=== PATIENT | female | born 1950 | race Native Hawaiian/Other Pacific Islander ===

== ENCOUNTER 2016-12-24 08:15 | Outpatient (CLI) | payer OTHER, MEDICARE | END 2016-12-24 19:13 | disposition home or self-care (01) | LOC: NM 08:15 | DX: R07.89 Other chest pain (principal) | CPT/HCPCS: A9500; J2785 ==

== ENCOUNTER 2017-10-31 13:15 | Outpatient (CLI) | payer OTHER, MEDICARE | END 2017-10-31 19:24 | disposition home or self-care (01) | LOC: RAD 13:15 | DX: M25.562 Pain in left knee (principal) ==

== ENCOUNTER 2019-03-01 11:57 | Outpatient (CLI) | payer OTHER, MEDICARE ==
[2019-03-01 12:10] LABS: PLATELET COUNT 201 K/uL (152-353)
[2019-03-01 12:34] LABS: POTASSIUM 4.4 mmol/L (3.6-5.2)
== END 2019-03-01 19:53 | disposition home or self-care (01) ==
LOC: LAB 11:57
PROVIDERS: Physician Assistant
DX: Z00.00 Encounter for general adult medical examination without abnormal findings (principal); I10 Essential (primary) hypertension; E55.9 Vitamin D deficiency, unspecified; E53.8 Deficiency of other specified B group vitamins
CPT/HCPCS: 80053; 80061; 82306; 82607; 84439; 84443; 85027

== ENCOUNTER 2019-04-06 08:38 | Outpatient (CLI) | payer OTHER, MEDICARE | END 2019-04-06 19:50 | disposition home or self-care (01) | LOC: MAMMO 08:38 | DX: Z00.00 Encounter for general adult medical examination without abnormal findings (principal); Z12.31 Encounter for screening mammogram for malignant neoplasm of breast; M25.561 Pain in right knee ==

== ENCOUNTER 2019-04-29 10:16 | Outpatient (CLI) | payer OTHER, MEDICARE | END 2019-04-29 20:15 | disposition home or self-care (01) | LOC: RAD 10:16 | DX: R92.8 Other abnormal and inconclusive findings on diagnostic imaging of breast (principal); N63.20 Unspecified lump in the left breast, unspecified quadrant ==

== ENCOUNTER 2020-04-12 12:53 | Outpatient (CLI) | payer OTHER, MEDICARE ==
[2020-04-12 15:00] LABS: PLATELET COUNT 192 K/uL (152-353)
[2020-04-12 18:32] LABS: POTASSIUM 4.9 mmol/L (3.6-5.2)
== END 2020-04-12 20:27 | disposition home or self-care (01) ==
LOC: LAB 12:53
PROVIDERS: Nurse Practitioner Family
DX: Z00.00 Encounter for general adult medical examination without abnormal findings (principal); I10 Essential (primary) hypertension; E78.00 Pure hypercholesterolemia, unspecified; M54.5 Low back pain; E55.9 Vitamin D deficiency, unspecified; Z79.899 Other long term (current) drug therapy
CPT/HCPCS: 36415; 80053; 80061; 82306; 83036; 84439; 84443; 84481; 85027

== ENCOUNTER 2020-04-26 08:26 | Outpatient (CLI) | payer OTHER, MEDICARE | END 2020-04-26 19:48 | disposition home or self-care (01) | LOC: US 08:26 | DX: N28.9 Disorder of kidney and ureter, unspecified (principal); Q60.0 Renal agenesis, unilateral ==

== ENCOUNTER 2020-07-06 14:30 | Outpatient (CLI) | payer OTHER, MEDICARE ==
[2020-07-06 14:42] LABS: PLATELET COUNT 183 K/uL (152-353)
[2020-07-06 15:06] LABS: POTASSIUM 4.4 mmol/L (3.6-5.2)
== END 2020-07-06 20:01 | disposition home or self-care (01) ==
LOC: LAB 14:30
PROVIDERS: Nurse Practitioner Family
DX: I10 Essential (primary) hypertension (principal); E78.00 Pure hypercholesterolemia, unspecified; E55.9 Vitamin D deficiency, unspecified; Z79.899 Other long term (current) drug therapy; R06.02 Shortness of breath; R63.5 Abnormal weight gain
CPT/HCPCS: 80053; 80061; 82306; 83036; 84439; 84443; 84481; 85027

== ENCOUNTER 2020-07-26 07:32 | Outpatient (CLI) | payer OTHER, MEDICARE | END 2020-07-26 23:19 | disposition home or self-care (01) | LOC: US 07:32 | DX: R10.11 Right upper quadrant pain (principal) ==

== ENCOUNTER 2020-08-01 07:55 | Outpatient (CLI) | payer OTHER, MEDICARE | END 2020-08-01 23:28 | disposition home or self-care (01) | LOC: CT 07:55 | DX: R10.11 Right upper quadrant pain (principal) ==

== ENCOUNTER 2020-08-10 07:41 | Outpatient (CLI) | payer OTHER, MEDICARE ==
[2020-08-10 08:50] LABS: PLATELET COUNT 201 K/uL (152-353)
[2020-08-10 08:55] LABS: POTASSIUM 4.6 mmol/L (3.6-5.2)
== END 2020-08-10 20:52 | disposition home or self-care (01) ==
LOC: US 07:41
PROVIDERS: ATTEND Internal Medicine
DX: N18.31 Chronic kidney disease, stage 3a (principal); R53.81 Other malaise; Z79.899 Other long term (current) drug therapy; R79.89 Other specified abnormal findings of blood chemistry
CPT/HCPCS: 36415; 80053; 81000; 82306; 82330; 82570; 82607; 82728; 82746; 83036; 83540; 83550; 83735; 83970; 84100; 84155; 84439; 84443; 85027; 85651; 86038; 86140

== ENCOUNTER 2020-10-31 11:45 | Outpatient (CLI) | payer OTHER, MEDICARE ==
[2020-10-31 12:18] LABS: PLATELET COUNT 199 K/uL (152-353)
[2020-10-31 12:44] LABS: POTASSIUM 4.9 mmol/L (3.6-5.2)
== END 2020-10-31 20:58 | disposition home or self-care (01) ==
LOC: LABW 11:45
PROVIDERS: ATTEND Nurse Practitioner
DX: N18.31 Chronic kidney disease, stage 3a (principal)
CPT/HCPCS: 36415; 80053; 81000; 82330; 82570; 83735; 84100; 84155; 85027

== ENCOUNTER 2020-12-11 08:27 | Outpatient (CLI) | payer OTHER, MEDICARE ==
[2020-12-11 09:09] LABS: PLATELET COUNT 203 K/uL (152-353)
[2020-12-11 09:41] LABS: POTASSIUM 4.8 mmol/L (3.6-5.2)
== END 2020-12-11 22:09 | disposition home or self-care (01) ==
LOC: LABW 08:27
PROVIDERS: ATTEND Internal Medicine
DX: N18.31 Chronic kidney disease, stage 3a (principal)
CPT/HCPCS: 36415; 80053; 81000; 82330; 82570; 83735; 84100; 84155; 85027

== ENCOUNTER 2021-03-13 07:21 | Outpatient (CLI) | payer OTHER, MEDICARE ==
[2021-03-13 07:58] LABS: PLATELET COUNT 232 K/uL (152-353)
[2021-03-13 08:13] LABS: POTASSIUM 5.6 mmol/L (3.6-5.2)
== END 2021-03-13 19:17 | disposition home or self-care (01) ==
LOC: LABW 07:21
PROVIDERS: ATTEND Internal Medicine
DX: N18.31 Chronic kidney disease, stage 3a (principal); R53.81 Other malaise
CPT/HCPCS: 36415; 80053; 81000; 82306; 82330; 82570; 83735; 84100; 84155; 85027

== ENCOUNTER 2021-04-19 09:26 | Day surgery (SDC) | payer OTHER, MEDICARE ==
[~2021-04-19] VITALS: Ht 30.5 cm; Wt 0.5 kg
== END 2021-04-19 13:40 | disposition home or self-care (01) ==
LOC: OR 09:26
PROVIDERS: ATTEND Student in an Organized Health Care Education/Training Program
PROC: 0FT44ZZ Resection of Gallbladder, Percutaneous Endoscopic Approach (ICD-10-PCS; principal; 2021-04-19)
PROC: 0DNU4ZZ Release Omentum, Percutaneous Endoscopic Approach (ICD-10-PCS; 2021-04-19)
DX: K80.10 Calculus of gallbladder with chronic cholecystitis without obstruction (principal); K66.0 Peritoneal adhesions (postprocedural) (postinfection); R16.0 Hepatomegaly, not elsewhere classified; Z20.822 Contact with and (suspected) exposure to COVID-19
CPT/HCPCS: 87635; J0132; J0690; J1170; J2001; J2250; J2405; J2704; J3010; J3490; U0003

== ENCOUNTER 2021-05-23 10:36 | Outpatient (CLI) | payer OTHER, MEDICARE | END 2021-05-23 19:09 | disposition home or self-care (01) | LOC: RAD 10:36 | PROVIDERS: ATTEND Nurse Practitioner Family | DX: R06.02 Shortness of breath (principal) ==

== ENCOUNTER 2021-05-23 11:38 | Inpatient (IN) | payer OTHER, MEDICARE ==
[2021-05-23] VITALS (10 sets, daily range): BP systolic 83–121; BP diastolic 53–66; TEMP 98
[~2021-05-23] VITALS: Ht 158.8 cm; Wt 76.7 kg
[2021-05-23 12:45] LABS: PLATELET COUNT 174 K/uL (152-353)
[2021-05-23 12:53] LABS: POTASSIUM 4.7 mmol/L (3.6-5.2)
[2021-05-24] VITALS (8 sets, daily range): BP systolic 92–113; BP diastolic 57–72; TEMP 97.3–98.6; Ht 158.8 cm; Wt 76.7 kg
[2021-05-24 05:31] LABS: PLATELET COUNT 164 K/uL (152-353)
[2021-05-24 06:46] LABS: POTASSIUM 5.4 mmol/L (3.6-5.2)
[2021-05-25] VITALS: BP 121/79; TEMP 97.7
[2021-05-25 04:00] VITALS: BP 128/81; TEMP 97.9
[2021-05-25 08:00] VITALS: BP 131/84; TEMP 97.6
[2021-05-25 11:07] LABS: PLATELET COUNT 208 K/uL (152-353)
[2021-05-25 11:54] LABS: POTASSIUM 5.2 mmol/L (3.6-5.2)
[2021-05-25 12:00] VITALS: BP 138/89; TEMP 98.2
== END 2021-05-25 15:40 | disposition home or self-care (01) | DRG 178 ==
LOC: ED 11:38 → MED/SURG 19:21
PROVIDERS: Emergency Medicine Emergency Medical Services; ADMIT Family Medicine; ATTEND Family Medicine
DX: U07.1 COVID-19 (principal); E87.1 Hypo-osmolality and hyponatremia; I12.0 Hypertensive chronic kidney disease with stage 5 chronic kidney disease or end stage renal disease; N18.5 Chronic kidney disease, stage 5; E78.49 Other hyperlipidemia
CPT/HCPCS: 36415; 80053; 82728; 83605; 83690; 83735; 84100; 85027; 86140; 87635; 96360; 96372; 96374; 96375; 99284; J1100; J1650; J2405; U0003

== ENCOUNTER 2021-05-27 10:12 | Outpatient (CLI) | payer OTHER, MEDICARE ==
[2021-05-27 10:48] LABS: POTASSIUM 4.2 mmol/L (3.6-5.2)
== END 2021-05-27 19:05 | disposition home or self-care (01) ==
LOC: LABW 10:12
PROVIDERS: ATTEND Family Medicine
DX: N17.9 Acute kidney failure, unspecified (principal)
CPT/HCPCS: 36415; 80048

== ENCOUNTER 2021-06-20 10:14 | Outpatient (CLI) | payer OTHER, MEDICARE ==
[2021-06-20 11:05] LABS: PLATELET COUNT 310 K/uL (152-353)
[2021-06-20 11:08] LABS: POTASSIUM 4.3 mmol/L (3.6-5.2)
== END 2021-06-20 20:10 | disposition home or self-care (01) ==
LOC: LABW 10:14
PROVIDERS: ATTEND Internal Medicine
DX: N18.4 Chronic kidney disease, stage 4 (severe) (principal); R53.81 Other malaise
CPT/HCPCS: 36415; 80053; 81000; 82306; 82330; 82570; 83735; 83970; 84100; 84155; 85027

== ENCOUNTER 2021-10-08 08:35 | Outpatient (CLI) | payer OTHER, MEDICARE ==
[2021-10-08 08:56] LABS: PLATELET COUNT 223 K/uL (152-353)
[2021-10-08 09:57] LABS: POTASSIUM 4.5 mmol/L (3.6-5.2)
== END 2021-10-08 19:32 | disposition home or self-care (01) ==
LOC: LABW 08:35
PROVIDERS: ATTEND Internal Medicine
DX: N18.4 Chronic kidney disease, stage 4 (severe) (principal)
CPT/HCPCS: 36415; 80053; 81000; 82306; 82330; 82570; 83735; 83970; 84100; 84155; 85027

== ENCOUNTER 2021-12-13 09:33 | Outpatient (CLI) | payer OTHER, MEDICARE ==
[2021-12-13 10:01] LABS: PLATELET COUNT 209 K/uL (152-353)
[2021-12-13 10:34] LABS: POTASSIUM 4.5 mmol/L (3.6-5.2)
== END 2021-12-13 20:39 | disposition home or self-care (01) ==
LOC: LABW 09:33
PROVIDERS: ATTEND Internal Medicine
DX: N18.4 Chronic kidney disease, stage 4 (severe) (principal)
CPT/HCPCS: 36415; 80053; 81000; 82306; 82330; 82570; 83735; 83970; 84100; 84155; 85027

== ENCOUNTER 2022-01-30 11:28 | Outpatient (CLI) | payer OTHER, MEDICARE | END 2022-01-30 21:40 | disposition home or self-care (01) | LOC: RAD 11:28 | PROVIDERS: ATTEND Internal Medicine | DX: M25.511 Pain in right shoulder (principal) ==

== ENCOUNTER 2022-02-10 18:14 | Outpatient (CLI) | payer OTHER, MEDICARE | END 2022-02-10 19:29 | disposition home or self-care (01) | LOC: RAD 18:14 | PROVIDERS: ATTEND Orthopaedic Surgery | DX: M25.561 Pain in right knee (principal); M25.562 Pain in left knee ==

== ENCOUNTER 2022-03-08 12:30 | Outpatient (CLI) | payer OTHER, MEDICARE ==
[2022-03-08 12:58] LABS: POTASSIUM 4.5 mmol/L (3.6-5.2)
[2022-03-08 13:02] LABS: PLATELET COUNT 259 K/uL (152-353)
== END 2022-03-08 20:28 | disposition home or self-care (01) ==
LOC: LAB 12:30
PROVIDERS: ATTEND Internal Medicine
DX: Z01.818 Encounter for other preprocedural examination (principal); M25.561 Pain in right knee; Z79.899 Other long term (current) drug therapy
CPT/HCPCS: 80053; 83036; 85027; 87077; 87086; 87088; 87185

== ENCOUNTER 2022-04-11 12:25 | Outpatient (CLI) | payer OTHER, MEDICARE | END 2022-04-11 19:07 | disposition home or self-care (01) | LOC: US 12:25 | PROVIDERS: ATTEND Internal Medicine Cardiovascular Disease | DX: R09.89 Other specified symptoms and signs involving the circulatory and respiratory systems (principal) ==

== ENCOUNTER 2022-06-10 09:55 | Outpatient (CLI) | payer OTHER, MEDICARE | END 2022-06-10 19:21 | disposition home or self-care (01) | LOC: RAD 09:55 | PROVIDERS: ATTEND Physician Assistant | DX: M25.561 Pain in right knee (principal) ==

== ENCOUNTER 2022-06-11 12:49 | Outpatient (CLI) | payer OTHER, MEDICARE | END 2022-06-11 19:38 | disposition home or self-care (01) | LOC: LABW 12:49 | PROVIDERS: ATTEND Internal Medicine | DX: R53.83 Other fatigue (principal); N18.4 Chronic kidney disease, stage 4 (severe); Z79.899 Other long term (current) drug therapy; E55.9 Vitamin D deficiency, unspecified; E53.8 Deficiency of other specified B group vitamins; I12.9 Hypertensive chronic kidney disease with stage 1 through stage 4 chronic kidney disease, or unspecified chronic kidney disease | CPT/HCPCS: 36415; 82306; 82607; 82728; 82746; 83036; 83540; 83550; 84439; 84443; 85652; 86038 ==

== ENCOUNTER 2022-09-19 11:52 | Outpatient (CLI) | payer OTHER, MEDICARE ==
[2022-09-19 12:15] LABS: PLATELET COUNT 274 K/uL (152-353)
[2022-09-19 12:40] LABS: POTASSIUM 3.9 mmol/L (3.6-5.2)
== END 2022-09-19 21:35 | disposition home or self-care (01) ==
LOC: LABW 11:52
PROVIDERS: ATTEND Nurse Practitioner Family
DX: M54.6 Pain in thoracic spine (principal); R10.11 Right upper quadrant pain
CPT/HCPCS: 36415; 80053; 82150; 82550; 82553; 83690; 84484; 85027; 93005

== ENCOUNTER 2022-12-11 14:08 | Outpatient (CLI) | payer OTHER, MEDICARE ==
[2022-12-11 14:39] LABS: PLATELET COUNT 248 K/uL (152-353)
[2022-12-11 15:02] LABS: POTASSIUM 3.8 mmol/L (3.6-5.2)
[2022-12-11 15:10] LABS: PARTIAL THROMBOPLASTIN TIME 28.4 SECONDS (24.5-33.6)
== END 2022-12-11 19:42 | disposition home or self-care (01) ==
LOC: LABW 14:08
PROVIDERS: ATTEND Internal Medicine
DX: Z01.818 Encounter for other preprocedural examination (principal); I12.9 Hypertensive chronic kidney disease with stage 1 through stage 4 chronic kidney disease, or unspecified chronic kidney disease; N18.4 Chronic kidney disease, stage 4 (severe); Z79.899 Other long term (current) drug therapy
CPT/HCPCS: 36415; 80053; 81002; 82043; 82306; 82330; 82570; 82607; 82728; 82746; 83036; 83540; 83550; 83735; 83970; 84100; 84156; 84439; 84443; 85027; 85610; 85652; 85730; 86038

== ENCOUNTER 2023-02-18 10:09 | Outpatient (CLI) | payer OTHER, MEDICARE | END 2023-02-18 19:06 | disposition home or self-care (01) | LOC: RAD 10:09 | PROVIDERS: ATTEND Physician Assistant | DX: Z96.659 Presence of unspecified artificial knee joint (principal) ==

== ENCOUNTER 2023-02-28 10:46 | Outpatient (CLI) | payer OTHER, MEDICARE | END 2023-02-28 19:00 | disposition home or self-care (01) | LOC: US 10:46 | PROVIDERS: ATTEND Orthopaedic Surgery | DX: R60.0 Localized edema (principal) ==

== ENCOUNTER → 2023-03-17 | Outpatient (CLI) | payer OTHER, MEDICARE | LOC: LAB 20:15 | PROVIDERS: ATTEND Orthopaedic Surgery | DX: M25.562 Pain in left knee (principal) ==

== ENCOUNTER 2023-06-13 14:26 | Outpatient (CLI) | payer OTHER, MEDICARE | END 2023-06-13 19:22 | disposition home or self-care (01) | LOC: CT 14:26 | PROVIDERS: ATTEND Nurse Practitioner Family | DX: R10.32 Left lower quadrant pain (principal) ==